=== PATIENT | male | born 1980 | race Caucasian/White ===

== ENCOUNTER 2021-07-24 15:14 | Emergency (ER) | payer MEDICAID ==
[~2021-07-24] VITALS: Ht 167.6 cm; Wt 77.0 kg
[2021-07-24 15:26] VITALS: BP 146/94
[2021-07-24] MEDS ORDERED: TETRACAINE 0.5% OPHTH DROPS 4ML LEFTEYE ONE (15:45)
[2021-07-24] MEDS ORDERED: FLUORESCEIN SODIUM 1MG/STRIP LEFTEYE ONE (15:45)
[2021-07-24] MEDS ORDERED: POLY10DR LEFTEYE (16:47)
== END 2021-07-24 17:14 | disposition home or self-care (01) ==
LOC: ER 15:14
DX: S00.202A Unspecified superficial injury of left eyelid and periocular area, initial encounter (principal); X58.XXXA Exposure to other specified factors, initial encounter; Y93.89 Activity, other specified; Y92.89 Other specified places as the place of occurrence of the external cause; Y99.8 Other external cause status
CPT/HCPCS: 99283

== ENCOUNTER 2021-08-27 15:51 | Emergency (ER) | payer MEDICAID ==
[~2021-08-27] VITALS: Ht 167.6 cm; Wt 71.0 kg
[~2021-08-27 15:51] MED LIST: POLY10DR LEFTEYE
[2021-08-27] MEDS ORDERED: FLUORESCEIN SODIUM 1MG/STRIP LEFTEYE ONE (16:15)
[2021-08-27] MEDS ORDERED: TETRACAINE 0.5% OPHTH DROPS 4ML LEFTEYE ONE (16:15)
[2021-08-27] MEDS ORDERED: ACETAMINOPHEN 325MG TABLET PO ONE (16:15)
[2021-08-27] MEDS ORDERED: POLY15DR31 RIGHTEYE (16:47)
[2021-08-27 17:13] VITALS: BP 112/79
== END 2021-08-27 17:14 | disposition home or self-care (01) ==
LOC: ER 15:51
DX: H10.32 Unspecified acute conjunctivitis, left eye (principal); R51.9 Headache, unspecified
CPT/HCPCS: 99283

== ENCOUNTER 2021-12-28 15:06 | Emergency (ER) | payer MEDICAID ==
[~2021-12-28] VITALS: Ht 177.8 cm; Wt 77.0 kg
[~2021-12-28 15:06] MED LIST changes: +POLY15DR31 RIGHTEYE
[2021-12-28] MEDS ORDERED: TETANUS, DIPHTHERIA, PERTUSSIS VAC/PF 0.5ML (>10YR OLD) IM ONE (16:45)
[2021-12-28] MEDS ORDERED: AMOX1TAB16 MT (17:35)
[2021-12-28 17:53] VITALS: BP 132/78
== END 2021-12-28 17:56 | disposition home or self-care (01) ==
LOC: ER 15:06
DX: S61.112A Laceration without foreign body of left thumb with damage to nail, initial encounter (principal); W27.1XXA Contact with garden tool, initial encounter; R03.0 Elevated blood-pressure reading, without diagnosis of hypertension; Y93.H2 Activity, gardening and landscaping; Y92.017 Garden or yard in single-family (private) house as the place of occurrence of the external cause
CPT/HCPCS: 11730; 73130; 90471; 90715; 99284